=== PATIENT | female | born 1955 | race Caucasian/White ===

== ENCOUNTER 2017-09-24 10:49 | Emergency (ER) | payer BC ==
[~2017-09-24] VITALS: Ht 162.6 cm; Wt 59.1 kg
[2017-09-24 10:52] VITALS: TEMP 98.8
[2017-09-24] MEDS ORDERED: MULTI VITAMINS1 TAB PO (10:58)
[2017-09-24] MEDS ORDERED: OSCAL 500 TAB500 MG PO (10:59)
[2017-09-24 12:04] LABS: HEMATOCRIT 41.7 % (37.0-47.0); MEAN CELL VOLUME 91 fl (80.0-100.0); MEAN CORPUSCULAR HEMOGLOBIN 30 pg (27.0-31.0); MEAN CORPUSCULAR HGB CONC 34 g/dl (33.0-37.0); MEAN PLATELET VOLUME 11.6 fl (7.4-10.4); PLATELET COUNT 71 K/mm3 (130-400); RED BLOOD COUNT 4.61 M/mm3 (4.10-5.30); WHITE BLOOD COUNT 2.6 K/mm3 (4.8-10.8)
[2017-09-24 12:05] LABS: ADD PATHOLOGY DIFF REVIEW NO
[2017-09-24 12:13] LABS: CALCIUM 9.2 mg/dL (8.4-10.2); CREATININE, serum 1.14 mg/dL (0.52-1.25); POTASSIUM 4.3 mmol/L (3.4-5.0)
[2017-09-24 12:25] LABS: BAND 40 % (0-10); EOSINOPHIL 6 % (0-4); LYMPHOCYTE 22 % (20.0-51.0); NEUTROPHILS 26 % (42.0-75.2); PLATELET ESTIMATE DECREASED (NORMAL); TOTAL CELLS COUNTED 100
[2017-09-24 12:36] VITALS: BP 130/67
[2017-09-24 12:56] LABS: INR 1.4 (0.8-3.0); PROTHROMBIN TIME 16.5 SECONDS (9.7-12.8)
[2017-09-24] MEDS ORDERED: DOXYCYCLINE 10100 MG PO (14:05)
[2017-09-24 14:12] VITALS: PULSE 76
== END 2017-09-24 14:12 | disposition home or self-care (01) ==
LOC: COL.ER 10:49
PROVIDERS: Emergency Medicine
DX: T88.6XXA Anaphylactic reaction due to adverse effect of correct drug or medicament properly administered, initial encounter (principal); T37.0X5A Adverse effect of sulfonamides, initial encounter
CPT/HCPCS: J1100; J7030